=== PATIENT | female | born 1980 | race Caucasian/White ===

== ENCOUNTER 2023-05-24 20:36 | Emergency (ER) | payer MEDICAID, SELFPAY ==
[2023-05-24 20:53] VITALS: BP 155/86; PULSE 72; RESP 18; TEMP 36.6; O2SAT 99; BMI 36.9
--- NOTE | 2023-05-24 21:02 | XRR_ITS ---
PROCEDURE INFORMATION: Exam: XR Right Shoulder Exam date and time: 05/24/2023 9:10 PM Age: 42 years old Clinical indication: Injury or trauma; Fall; Blunt trauma (contusions or hematomas); Shoulder; Right TECHNIQUE: Imaging protocol: Radiologic exam of the right shoulder. Views: 2 or more views. COMPARISON: No relevant prior studies available. FINDINGS: Bones/joints: No acute fracture. No dislocation. Bones are mildly osteopenic. Small osteophytes at the right glenoid. Mild degenerative changes in the visualized spine. Lungs: Visualized lungs are clear. Soft tissues: No soft tissue swelling. No radiopaque foreign body. XR/XR shoulder RT min 2V* [id number] IMPRESSION: 1. No acute fracture of the right shoulder. Followup radiographs recommended in 7-14 days if clinical concern for fracture persists. 2. Incidental/nonacute findings are listed in the report.
--- NOTE | 2023-05-24 21:02 | XRR_ITS ---
PROCEDURE INFORMATION: Exam: XR Right Elbow Exam date and time: 05/24/2023 9:13 PM Age: 42 years old Clinical indication: Injury or trauma; Fall; Blunt trauma (contusions or hematomas); Elbow; Right TECHNIQUE: Imaging protocol: Radiologic exam of the right elbow. Views: 3 or more views. COMPARISON: No relevant prior studies available. FINDINGS: Bones/joints: Small calcified enthesophytes at the origin of the common flexor and extensor tendons. Nondisplaced fracture of the right radial head. No dislocation. Bones are mildly osteopenic. Large right elbow joint effusion with displacement of the anterior and posterior fat pads. Soft tissues: No soft tissue swelling. No radiopaque foreign body. XR/XR elbow RT min 3V* [id number] IMPRESSION: 1. Nondisplaced fracture of the right radial head. 2. Large right elbow joint effusion. 3. Incidental/nonacute findings are listed in the report.
--- NOTE | 2023-05-24 21:17 | XRR_ITS ---
PROCEDURE INFORMATION: Exam: XR Left Finger(s) Exam date and time: 05/24/2023 9:18 PM Age: 42 years old Clinical indication: Injury or trauma; Fall; Blunt trauma (contusions or hematomas); Left; Little finger; Additional info: Pain swelling TECHNIQUE: Imaging protocol: Radiologic exam of the left fingers. Views: Minimum 2 views. COMPARISON: No relevant prior studies available. FINDINGS: Bones/joints: Small mildly displaced avulsion fracture at the volar base of the 5th middle phalanx on the left hand. No dislocation. Bones are mildly osteopenic. Eccentric cystic focus off the dorsal/distal metaphysis of the 5th proximal phalanx of the left hand of uncertain etiology. Soft tissues: Moderate soft tissue swelling at the left 5th finger. No radiopaque foreign body. XR/XR finger LT min 2V [id number] IMPRESSION: 1. Small mildly displaced avulsion fracture at the volar base of the 5th middle phalanx on the left hand. 2. Eccentric cystic focus off the dorsal/distal metaphysis of the 5th proximal phalanx of the left hand of uncertain etiology. Findings are most concerning for a mass of uncertain etiology. Recommend clinical correlation. Nonemergent CT scan or MRI is also recommended. 3. Incidental/nonacute findings are listed in the report.
[2023-05-24] MEDS: ketorolac 60 mg/2 mL INJ IM (22:15)
--- NOTE | 2023-05-24 22:17 | ED_ITS ---
HPI - Extremity Problem General: Chief complaint: Extremity Injury, Upper Stated complaint: fell righ arm injury Time Seen by Provider: 05/24/23 20:49 History of Present Illness: Tamela Sanchez is a 42-year-old [id number] female that presents to the emergency department after a fall down 8 stairs. She says she slid down denies striking her head or loss of consciousness. She denies injuring her back or pelvis She was ambulatory after the fact. She was primarily complaining of right shoulder and elbow pain She also has ecchymosis, pain and swelling in the left fifth digit Patient has no open wounds and is neurovascularly intact Review of Systems General: Reports: 10 or more systems reviewed and unremarkable except in HPI and below Physical Exam Const: COMMON NORMALS: no acute distress, patient oriented x3 and alert GENERAL APPEARANCE: cooperative ORIENTATION/CONSCIOUSNESS: Yes awake, Yes oriented to person, Yes oriented to place and Yes oriented to time Neck/C-Spine: COMMON NORMALS: full ROM GENERAL: Yes normal visual inspection Chest: COMMONS NORMALS: normal inspection of the chest Breast/axilla inspection: Yes no chest deformity, asymmetry, normal contours, no nodules, masses, tenderness Resp: COMMON NORMALS: normal respiratory effort, No retractions, No use of accessory muscles and clear to auscultation bilaterally EFFORT & INSPECTION: Yes able to speak in complete sentences and Yes symmetric chest movement AUSCULTATION: clear to auscultation bilaterally Cardio: COMMON NORMALS: regular rate, regular rhythm and Peripheral pulses 2+ throughout RATE: regular rate RHYTHM: regular rhythm PERIPHERAL PULSES: Peripheral pulses 2+ throughout GI: COMMON NORMALS: Normal to inspection, nondistended, normoactive bowel sounds present, Soft to palpation, non-tender and No hepatosplenomegaly present INSPECTION: Yes normal to inspection AUSCULTATION: Yes normoactive bowel sounds PALPATION: Yes Soft to palpation and Yes No hepatosplenomegaly present RECTAL EXAM: deferred Back/Pelvis: OTHER: Nontender to palpation over neck, thoracic, lumbar back She has tenderness to palpation over the right shoulder and right elbow She has full active range of motion forward flexion internal rotation and external rotation. She is able to flex and extend the elbow along with supination and pronation She is able to extend her wrist Is able to give a thumbs up, make an okay sign, cross fingers, abduct fingers and make a fist Sensation in tact to light touch at axillary, radial, median, ulnar nerve distribution Radial pulses palpable and cap refills less than 3 seconds Left hand?ecchymosis, edema, tenderness to the left fifth DIP joint. Cap refill less than 3 seconds and sensation intact distal to injury Extremity: COMMON NORMALS: normal to inspection GENERAL: Yes normal exam except as noted Neuro: COMMON NORMALS: patient oriented x3 SENSORIUM/ORIENTATION: Yes alert, Yes oriented to person, Yes oriented to place and Yes oriented to time CRANIAL NERVES: Yes CN normal except as noted Psych: COMMON NORMALS: mental status grossly normal, Normal thought process present, cooperative, activity/motor behavior normal, denies homicidal ideation and denies suicidal ideation THOUGHT PROCESS: Normal thought process present Skin: COMMON NORMALS: no rashes or lesions noted, no wounds and turgor normal GENERAL SKIN EXAM: no rashes or lesions noted and turgor normal Course Vital Signs: Vital signs: Vital Signs Temperature 98 F 05/24/23 20:53 Pulse Rate 72 05/24/23 20:53 Respiratory Rate 18 05/24/23 20:53 Blood Pressure 155/86 05/24/23 20:53 Pulse Oximetry 99 05/24/23 20:53 Oxygen Delivery Me thod Room Air 05/24/23 20:53 MDM - Extremity (Nontraumatic) Medical Decision Making Patient underwent diagnostic imaging to rule out fracture, fracture dislocation, versus contusions X-ray of the right shoulder and elbow were reviewed with Dr. Herrmann. No acute findings, unremarkable. She does have a prior right clavicle fracture that is well-healed On the left hand she had a tiny avulsion fracture off the proximal aspect of the middle phalangeal/DIP joint. Patient was put in a finger splint. Case management will be consulted for follow-up with hand surgeon. All questions answered XR interpretation done by ED provider, pending radiology final review Discharge Plan Discharge Patient Disposition: Home Clinical Impression: Finger fracture, left Condition: Stable Discharge Orders: Discharge ED (Routine); Ordered 05/24/23 Ordered By: Evie Boyd Discharge Diet: Advance as tolerated Discharge Activity: Resume usual activity Patient Instructions: Pain Management, Finger Fracture (ED), Fractures - Phalanx (Finger) Activity Restrictions/Additional Instructions: Please wear your splint that was provided Case management has been consulted to assist you in getting follow-up with a hand surgeon. 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
--- NOTE | 2023-05-24 22:27 | PC.NURSE ---
pt splint this nurse applied a small frog splint to pt pinky. pt cap refill was normal, pt finger then wrapped in loose coband for comfort.
[2023-05-24 22:38] VITALS: BP 186/93; PULSE 74; O2SAT 100
--- NOTE | 2023-05-25 07:19 | DCPLANNER ---
Message was sent to ortho on 05/25/22 at 0719. Clinic to contact patient
== END 2023-05-24 22:44 | disposition home or self-care (01) ==
PROVIDERS: Emergency Provider Nurse Practitioner
DX: S62.627A Displaced fracture of middle phalanx of left little finger, initial encounter for closed fracture (principal); W10.8XXA Fall (on) (from) other stairs and steps, initial encounter
CPT/HCPCS: 73030; 73080; 73140; 96372; 99284; J1885

== ENCOUNTER 2023-05-29 01:49 | Emergency (ER) | payer MEDICAID, SELFPAY ==
[2023-05-29 01:50] VITALS: BP 164/125; PULSE 95; RESP 18; TEMP 36.8; O2SAT 97; BMI 36.0
[2023-05-29 02:18] VITALS: BP 163/80; PULSE 88; RESP 16; O2SAT 97
[2023-05-29 02:21] LABS: Basophils # 0.1 10^3/uL (0.0-0.1); Basophils % 0.9 %; Eosinophils # 0.1 10^3/uL (0.0-0.8); Eosinophils % 2.2 %; Hematocrit 31.1 % (36-47); Lymphocytes % 17.4 %; Mean Corpuscular HGB Conc 30.5 g/dL (30-55); Mean Corpuscular Hemoglobin 24.9 pg (27-33); Mean Corpuscular Volume 81.6 fl (85-98); Mean Platelet Volume 8.6 fL (7.4-10.4); Monocytes # 0.6 10^3/uL (0.2-0.9); Neutrophils # 4.01 10^3/uL (1.8-7.7); Neutrophils % 69.3 %; Nucleated Red Blood Cells % 0 %; Platelet Count 309 10^3/cmm (157-399); Red Blood Count 3.81 10^6/uL (3.85-5.65); White Blood Count 5.79 10^3/uL (3.29-11.43)
[2023-05-29 02:32] LABS: HCG, Serum Qual Negative (Negative)
[2023-05-29 02:33] LABS: Add Urine Microscopic? YES; Bilirubin Urine Neg (Negative); Blood Urine 2+ (Negative); Glucose Urine UA 4+ (Normal); Ketones Urine 1+ (Negative); Leukocyte Esterase Urine Negative (Negative); Nitrate Urine Positive (Negative); Protein Urine Trace (Negative); Specific Gravity, Urine 1.005 (1.005-1.030); Urine Appearance Cloudy (CLEAR); Urine Color Yellow (Yellow); Urobilinogen Urine Norm (Negative); pH Urine 7 (5-7)
[2023-05-29 02:34] LABS: Bacteria Urine 4+ /hpf; RBC Urine 15-25 /hpf (0-2)
[2023-05-29 02:35] LABS: Add Urine Culture? Yes; Mucus Urine 1+ /hpf
[2023-05-29 02:38] LABS: Alanine Aminotransferase < 5 U/L (0-33); Alkaline Phosphatase 139 U/L (35-105); Anion Gap 13.8 (5-19); Aspartate Amino Transferase 10 U/L (0-32); Blood Urea Nitrogen 10 mg/dL (6-20); C Reactive Protein 7.4 mg/L (0.0-4.9); Calcium 9.2 mg/dL (8.5-10.5); Carbon Dioxide 29 mmol/L (22-29); Chloride 91 mmol/L (98-107); Globulin 3.5 g/dL (1.3-4.6); Glomerular Filtration Rate 173.4 mL/min (90-130); Glucose 350 mg/dL (65-115); Lipase 32 U/L (13-60); Osmolality Calculated 283 mOsm/kg (285-295); Potassium 3.8 mmol/L (3.5-5.1); Sodium 130 mmol/L (136-145); Total Bilirubin 0.6 mg/dL (0.15-1.2); Total Protein 7.5 g/dL (6.6-8.7)
[2023-05-29 02:39] LABS: Lactic Sepsis W/Reflex 2.1 mmol/L (0.5-2.2)
[2023-05-29] MEDS: ondansetron 2 mg/ML SDV 2 mL 4 MG IVP ×2 (03:23→06:23)
[2023-05-29 03:25] VITALS: BP 131/72; PULSE 86; RESP 16; O2SAT 97
--- NOTE | 2023-05-29 03:43 | CTR_ITS ---
PROCEDURE INFORMATION: Exam: CT Abdomen And Pelvis With Contrast Exam date and time: 05/29/2023 3:57 AM Age: 42 years old Clinical indication: Abdominal pain; Localized; Prior surgery; Surgery date: 6+ months; Surgery type: Gastric bypass, whipple; Patient HX: Patient has visible swelling to right side of abdomen; Additional info: Rlq pain TECHNIQUE: Imaging protocol: Computed tomography of the abdomen and pelvis with contrast. Radiation optimization: All CT scans at this facility use at least one of these dose optimization techniques: automated exposure control; mA and/or kV adjustment per patient size (includes targeted exams where dose is matched to clinical indication); or iterative reconstruction. Contrast material: OMNI 350; Contrast volume: 100 ml; Contrast route: INTRAVENOUS (IV); COMPARISON: No relevant prior studies available. RADIATION DOSE METRICS: Total DLP (mGy-cm): 1208.37 FINDINGS: Liver: Normal. No mass. Gallbladder and bile ducts: Normal. No calcified stones. No ductal dilation. Pancreas: Normal. No ductal dilation. Spleen: Calcified splenic granulomata. Mild 13 cm splenomegaly. Adrenal glands: Normal. No mass. Kidneys and ureters: Normal. No hydronephrosis. Stomach and bowel: Prior gastric surgery. Appendix: No evidence of appendicitis. Intraperitoneal space: Unremarkable. No free air. No significant fluid collection. Vasculature: Unremarkable. No abdominal aortic aneurysm. Lymph nodes: Unremarkable. No enlarged lymph nodes. Urinary bladder: Unremarkable as visualized. Reproductive: Unremarkable as visualized. Bones/joints: Unremarkable. No acute fracture. Soft tissues: Large anterior abdominal wall hernia/rectus diastasis on the right containing multiple loops of bowel. No incarceration or strangulation. CT/CT abdomen pelvis w con* [id number] IMPRESSION: 1. Broad-based right anterior abdominal wall hernias/rectus diastasis. 2. No acute subdiaphragmatic pathology.
[2023-05-29] MEDS: iohexol 350 mg/mL 500 mL Btl (per mL) IV (04:01)
[2023-05-29 04:07] LABS: Reflex Lactate Order REFLEX LACTIC ORDERD
--- NOTE | 2023-05-29 05:43 | W.ED.ABDPA2 ---
HPI - Abdominal Pain General: Chief Complaint: Abdominal Pain Stated Complaint: right sided abd distension Time Seen by Provider: 05/29/23 02:01 History of Present Illness: 42-year-old female. She has a history of multiple abdominal surgeries. She presents with right-sided abdominal pain, swelling, and a feeling of needing to belch with nausea. She says that this has happened on and off for the past few days, but was much worse this morning. No fever. No diarrhea. Associated Symptoms: Reports nausea; Denies chills, diarrhea, fever(s), hematochezia and vomiting Related Data: Date of Last Menstrual Period: 05/20/24 Review of Systems Const: Denies: fever(s), chills or body aches Eyes: Denies: change in vision Card: Denies: chest pain or palpitations Resp: Denies: dyspnea, productive cough, non-productive cough or wheezing GI: Reports: abdominal pain and nausea; Denies: vomiting, diarrhea or hematochezia : Denies: difficulty voiding Skin/Breast: Denies: rash Neuro: Denies: headache(s), weakness in extremities, dizziness or confusion [facility] ED Female Reproductive History: Date of last menstrual period: 05/20/24 Physical Exam Const: COMMON NORMALS: no acute distress GENERAL APPEARANCE: cooperative; not ill appearing and not frail appearing HENMT: COMMON NORMALS: normocephalic, atraumatic and Normal external nose present HEAD & SCALP: normocephalic and atraumatic FACE & SINUS: normal facial exam and face symmetric NOSE: Normal external nose present Eye: COMMON NORMALS: Equal, round and reactive pupils present and EOMs intact bilaterally PUPIL: Yes Equal, round and reactive pupils present Neck/C-Spine: GENERAL: Yes trachea midline Chest: CHEST: Yes Symmetrical chest wall rise Resp: COMMON NORMALS: normal respiratory effort, No retractions, No use of accessory muscles and clear to auscultation bilaterally AUSCULTATION: clear to auscultation bilaterally Cardio: COMMON NORMALS: regular rate and regular rhythm RATE: regular rate RHYTHM: regular rhythm GI: INSPECTION: Yes Localized GI swelling present PALPATION: Yes Firmness to palpation present (GI), Yes Tenderness to palpation present (GI) Details: RLQ and No Guarding due to palpation present (GI) Extremity: COMMON NORMALS: no pedal edema Neuro: [place]INA COMA SCALE: document GCS findings Samina coma scale eye opening: Spontaneous [place] coma scale verbal response: Orientated [place] coma scale motor response: Obey commands [place] coma scale total score: 15 SENSORY EXAM: Yes extremities (intact) Psych: COMMON NORMALS: speech normal SPEECH: Yes normal speech Skin: COMMON NORMALS: no rashes or lesions noted GENERAL SKIN EXAM: no rashes or lesions noted Course Vital Signs: Vital signs: Vital Signs Temperature 98.2 F 05/29/23 01:50 Pulse Rate 86 05/29/23 03:25 Respiratory Rate 16 05/29/23 03:25 Blood Pressure 131/72 05/29/23 03:25 Pulse Oximetry 97 05/29/23 03:25 Oxygen Delivery Me thod Room Air 05/29/23 03:25 MDM - Abdominal Pain Medical Decision Making Right lower quadrant pain, tenderness, and swelling. Hemoglobin is 9.5. White blood cell count 5.8. Sodium is 130 otherwise BMP not terribly remarkable. CRP is 7.4. Urinalysis shows negative leukocyte Estrace, with positive nitrites and some hematuria. There is bacteria as well. CT of the abdomen pelvis is pending. CT scan shows a large right-sided ventral hernia with no obstruction. She will be given a bowel prep for evacuation. Nausea medication. Outpatient surgery referral. Return for worsening symptoms. Lab Data 05/29/23 02:13 05/29/23 02:13 Labs/Radiology: Radiology Impressions Abdomen/Pelvis CT 05/29/23 03:43 IMPRESSION: 1. Broad-based right anterior abdominal wall hernias/rectus diastasis. 2. No acute subdiaphragmatic pathology. Laboratory Results WBC 5.79 10^3/uL (3.29-11.43) 05/29/23 02:13 RBC 3.81 10^6/uL (3.85-5.65) L 05/29/23 02:13 Hgb 9.50 g/dL (11.27-16.99) L 05/29/23 02:13 Hct 31.1 % (36-47) L 05/29/23 02:13 MCV 81.6 fl (85-98) L 05/29/23 02:13 MCH 24.9 pg (27-33) L 05/29/23 02:13 MCHC 30.5 g/dL (30-55) 05/29/23 02:13 RDW 16.0 % (12.1-15.1) H 05/29/23 02:13 Plt Count 309 10^3/cmm (157-399) 05/29/23 02:13 MPV 8.6 fL (7.4-10.4) 05/29/23 02:13 Neut % (Auto) 69.3 % 05/29/23 02:13 Lymph % (Auto) 17.4 % 05/29/23 02:13 [place] % (Auto) 10.0 % 05/29/23 02:13 Eos % (Auto) 2.2 % 05/29/23 02:13 Baso % (Auto) 0.9 % 05/29/23 02:13 Neut # (Auto) 4.01 10^3/uL (1.8-7.7) 05/29/23 02:13 Lymph # (Auto) 1.0 10^3/uL (0.8-4.8) 05/29/23 02:13 [place] # (Auto) 0.6 10^3/uL (0.2-0.9) 05/29/23 02:13 Eos # (Auto) 0.1 10^3/uL (0.0-0.8) 05/29/23 02:13 Baso # (Auto) 0.1 10^3/uL (0.0-0.1) 05/29/23 02:13 Nucleated RBC % (auto) 0 % 05/29/23 02:13 Nucleated RBCs # 0.0 /100WBC 05/29/23 02:13 Sodium 130 mmol/L (136-145) L 05/29/23 02:13 Potassium 3.8 mmol/L (3.5-5.1) 05/29/23 02:13 Chloride 91 mmol/L (98-107) L 05/29/23 02:13 Carbon Dioxide 29 mmol/L (22-29) 05/29/23 02:13 Anion Gap 13.8 (5-19) 05/29/23 02:13 BUN 10 mg/dL (6-20) 05/29/23 02:13 Creatinine 0.4 mg/dL (0.5-0.9) L 05/29/23 02:13 GFR Calculation 173.4 mL/min (90-130) H 05/29/23 02:13 Glucose 350 mg/dL (65-115) H 05/29/23 02:13 Calculated Osmolality 283 mOsm/kg (285-295) L 05/29/23 02:13 Lactic Acid 2.1 mmol/L (0.5-2.2) 05/29/23 02:13 Lactic Acid (Sepsis) 1.2 mmol/L (0.5-2.2) 05/29/23 05:40 Calcium 9.2 mg/dL (8.5-10.5) 05/29/23 02:13 Total Bilirubin 0.6 mg/dL (0.15-1.2) 05/29/23 02:13 AST 10 U/L (0-32) 05/29/23 02:13 ALT < 5 U/L (0-33) 05/29/23 02:13 Alkaline Phosphatase 139 U/L (35-105) H 05/29/23 02:13 C-Reactive Protein 7.4 mg/L (0.0-4.9) H 05/29/23 02:13 Total Protein 7.5 g/dL (6.6-8.7) 05/29/23 02:13 Albumin 4.0 g/dL (3.5-5.2) 05/29/23 02:13 Globulin 3.5 g/dL (1.3-4.6) 05/29/23 02:13 Lipase 32 U/L (13-60) 05/29/23 02:13 HCG, Qual Negative (Negative) 05/29/23 02:13 Urine Color Yellow (Yellow) 05/29/23 02:13 Urine Appearance Cloudy (CLEAR) A 05/29/23 02:13 Urine pH 7 (5-7) 05/29/23 02:13 Ur Specific [place] 1.005 (1.005-1.030) 05/29/23 02:13 Urine Protein Trace (Negative) 05/29/23 02:13 Urine Glucose (UA) 4+ (Normal) H 05/29/23 02:13 Urine Ketones 1+ (Negative) H 05/29/23 02:13 Urine Blood 2+ (Negative) H 05/29/23 02:13 Urine Nitrate Positive (Negative) H 05/29/23 02:13 Urine Bilirubin Neg (Negative) 05/29/23 02:13 Urine Urobilinogen Norm mg/dL (Negative) 05/29/23 02:13 Ur Leukocyte Esterase Negative (Negative) 05/29/23 02:13 Urine RBC 15-25 /hpf (0-2) H 05/29/23 02:13 Urine WBC 5-10 /hpf (0-5) H 05/29/23 02:13 Ur Squamous Epith Cells 5-10 /hpf (0-5) H 05/29/23 02:13 Amorphous Sediment Not Reportable 05/29/23 02:13 Urine Bacteria 4+ /hpf (NONE) H 05/29/23 02:13 Urine Mucus 1+ /hpf 05/29/23 02:13 All radiology interpretation(s) finalized by discharge Discharge Plan Discharge Patient Disposition: Home Clinical Impression: Abdominal pain, Ventral hernia Condition: Stable Prescriptions: New ondansetron 4 mg tablet,disintegrating 4 mg PO Q6H PRN (Reason: nausea and vomiting) Qty: 14 0RF Citrate of Magnesia Solution 300 ml PO DAILY PRN (Reason: constipation) Qty: 296 0RF Discharge Orders: Discharge ED (Routine); Ordered 05/29/23 Ordered By: Wero Mendez Referrals: Subhash Mendoza DO [Physician] - 4-7 days Patient Instructions: Abdominal Pain (ED), Ventral Hernia (ED), Opioid Safety, Pain Management Coding Level of Care Code ED 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
[2023-05-29 06:12] LABS: Lactic Acid level (Lactate) 1.2 mmol/L (0.5-2.2)
[2023-05-29 06:21] VITALS: BP 146/73; PULSE 86; RESP 16; O2SAT 96
[2023-05-29] MEDS: metoclopramide 5 mg/mL SDV 2 mL 10 MG IVP (06:25)
[2023-05-29] MEDS: ketorolac 30 mg/mL INJ IVP (06:28)
[2023-05-29 06:44] VITALS: RESP 16; O2SAT 97
== END 2023-05-29 06:45 | disposition home or self-care (01) ==
PROVIDERS: Emergency Provider Emergency Medicine
DX: K43.9 Ventral hernia without obstruction or gangrene (principal)
CPT/HCPCS: 74177; 80053; 81001; 83605; 83690; 84703; 85025; 86140; 87077; 87086; 87186; 96374; 96375; 96376; 99285; J1885; J2405; J2765; Q9967